=== PATIENT | female | born 2000 | race Caucasian/White ===

== ENCOUNTER 2019-07-25 12:41 | Emergency (ER) | payer OTHER ==
[2019-07-25] MEDS ORDERED: Albuterol Sulfate 1.25 MG/3 ML NEB ONE (13:55)
[2019-07-25] MEDS ORDERED: Albuterol Sulfate 2.5 mg/3 ml Neb ONE (13:55)
[2019-07-25] MEDS ORDERED: Dexamethasone 4 mg/ml Vial ONE (14:10)
[2019-07-25] MEDS ORDERED: Bicillin LA 1.2 MILLION UNITS/2 ML SYRINGE ONE (14:10)
--- NOTE | 2019-07-25 16:18 | RAD ---
TWO VIEW CHEST: 07/25/19 HISTORY: Cough. Lungs are clear. Heart and mediastinum appear normal. IMPRESSION: Negative chest. POS: OFF
== END 2019-07-25 16:33 | disposition home or self-care (01) ==
LOC: ERS 12:41
DX: J45.901 Unspecified asthma with (acute) exacerbation (principal); J02.0 Streptococcal pharyngitis; M94.0 Chondrocostal junction syndrome [Tietze]; F32.9 Major depressive disorder, single episode, unspecified
CPT/HCPCS: 71046; 94640; 94644; 96360; 96372; J0561; J1100; J7611; J7620